=== PATIENT | female | born 1950 | race Asian ===

== ENCOUNTER 2016-05-27 15:07 | Outpatient (CLI) | payer OTHER | END 2016-05-27 18:59 | disposition home or self-care (01) | LOC: SMA 15:07 | PROVIDERS: ATTEND Family Medicine | DX: Z12.31 Encounter for screening mammogram for malignant neoplasm of breast (principal); E04.2 Nontoxic multinodular goiter | CPT/HCPCS: 76536; 77067; G0202 ==

== ENCOUNTER 2016-06-06 08:42 | Outpatient (CLI) | payer OTHER ==
[2016-06-06] MEDS ORDERED: IOHEXOL 100 ML IV ONE (09:02)
== END 2016-06-06 18:08 | disposition home or self-care (01) ==
LOC: SCT 08:42
PROVIDERS: ATTEND Family Medicine
DX: E07.89 Other specified disorders of thyroid (principal); I70.90 Unspecified atherosclerosis
CPT/HCPCS: 70491; Q9967

== ENCOUNTER 2017-10-23 08:09 | Outpatient (CLI) | payer BC | END 2017-10-23 20:08 | disposition home or self-care (01) | LOC: SMA 08:09 | PROVIDERS: ATTEND Family Medicine | DX: Z12.31 Encounter for screening mammogram for malignant neoplasm of breast (principal) | CPT/HCPCS: 77067 ==

== ENCOUNTER 2018-04-02 08:25 | Outpatient (CLI) | payer BC | END 2018-04-02 21:02 | disposition home or self-care (01) | LOC: SUS 08:25 | DX: I80.8 Phlebitis and thrombophlebitis of other sites (principal) ==